=== PATIENT | female | born 1990 | race Caucasian/White ===

== ENCOUNTER 2017-02-27 12:56 | Emergency (ER) | payer OTHER ==
[~2017-02-27] VITALS: Ht 165.1 cm; Wt 104.3 kg
[~2017-02-27 12:56] MED LIST: ANAPROX DS550 MG PO; BENADRYL25 M2 PO; CIPRO500 MG PO; LIDEX 0.05% CRE15 GM T; LOTRISONE CREAM15 GM TP; MEDROL DOSEPAK4 MG PO; Motrin,Rufen800 MG PO; OMNICEF300 MG PO; PERCOCET 325 MG1 TA2 PO; PREDNISONE20 M1 PO; PRENATAL1 TA4 PO; ZYRTEC10 MG PO
[2017-02-27 15:24] LABS: BILIRUBIN NEGATIVE (NEGATIVE); BLOOD NEGATIVE (NEGATIVE); CLARITY SL CLOUDY (CLEAR); COLOR YELLOW (YELLOW); GLUCOSE NEGATIVE (NEGATIVE); KETONE NEGATIVE (NEGATIVE); LEUKO ESTERASE NEGATIVE (NEGATIVE); NITRITE NEGATIVE (NEGATIVE); PH 6.5 (5.0-9.0); UROBILINOGEN 0.2 E.U./dl (0.2-1.0)
[2017-02-27 15:32] LABS: BACTERIA 2+; WBC 0-2 wbc/hpf (0-5)
== END 2017-02-27 15:44 | disposition home or self-care (01) ==
LOC: ED 12:56
PROVIDERS: Physician Assistant
DX: O26.891 Other specified pregnancy related conditions, first trimester (principal); R10.2 Pelvic and perineal pain; F17.200 Nicotine dependence, unspecified, uncomplicated; Z3A.14 14 weeks gestation of pregnancy

== ENCOUNTER → 2019-08-20 | Outpatient (CLI) | payer OTHER | END | disposition home or self-care (01) | LOC: US 10:55 | DX: Z34.82 Encounter for supervision of other normal pregnancy, second trimester (principal); Z3A.19 19 weeks gestation of pregnancy ==

== ENCOUNTER → 2019-09-07 | Outpatient (CLI) | payer OTHER | LOC: US 10:26 | DX: Z34.82 Encounter for supervision of other normal pregnancy, second trimester (principal); Z3A.20 20 weeks gestation of pregnancy ==

== ENCOUNTER → 2019-10-01 | Outpatient (CLI) | payer OTHER | END | disposition home or self-care (01) | LOC: LAB 07:50 | DX: Z34.82 Encounter for supervision of other normal pregnancy, second trimester (principal); R73.09 Other abnormal glucose; Z3A.24 24 weeks gestation of pregnancy ==

== ENCOUNTER → 2019-11-10 | Outpatient (CLI) | payer OTHER | END | disposition home or self-care (01) | LOC: US 14:00 | DX: Z34.83 Encounter for supervision of other normal pregnancy, third trimester (principal); Z3A.30 30 weeks gestation of pregnancy ==

== ENCOUNTER → 2024-12-31 | Outpatient (CLI) | payer OTHER | LOC: RAD 15:04 | PROVIDERS: ATTEND Physician Assistant | DX: M77.31 Calcaneal spur, right foot (principal); M79.671 Pain in right foot; M79.672 Pain in left foot ==